=== PATIENT | female | born 2000 | race Two or more races ===

== ENCOUNTER 2025-02-08 23:23 | Emergency (ER) | payer MEDICAID, SELFPAY ==
[2025-02-08 23:24] VITALS: BMI 28.2
[2025-02-08 23:47] VITALS: BP 129/79; PULSE 97; RESP 18; TEMP 37.1; O2SAT 99
--- NOTE | 2025-02-08 23:52 | XR_ITS ---
Examination: CT abdomen and pelvis without contrast. Coronal 3-D reconstructions. Sagittal 2-D reconstructions. Date and time of exam: February 09, 2025, 0058 hours INDICATIONS: Onset right lower abdominal pain radiating to the back beginning 2 days ago CTDI: vol (mGy): 7.71 DLP: (mGycm): 444 Technique: Axial images of the abdomen have been obtained, 3 mm slice thickness Intravenous contrast material has not been administered. Low dose protocols were performed. One or more of the following dose reduction techniques were used; automated exposure control, adjustment of the mA and/or KV according to patient size, use of iterative reconstruction technique. Findings: Diffuse fatty infiltration throughout the liver No gallstones. No pancreatic mass No renal or ureteral calculi, no hydronephrosis Aorta normal size Normal appendix No bowel obstruction. Partially retroverted uterus with intrauterine device in the endometrium with the horizontal arms extending into the myometrium Mild free fluid in the pelvis 25 mm hypodense left adnexal mass Contracted urinary bladder IMPRESSION: Normal appendix Recommend transabdominal transvaginal pelvic sonography follow-up to exclude abnormal position of the intrauterine device and assess 25 mm hypodense left adnexal mass
[2025-02-09 00:23] LABS: Collection Type, Urine Clean Catch
[2025-02-09 00:28] LABS: Basophils # (Auto) 0.0 Thou/mm3 (0.0-0.2); Basophils % (Auto) 0 % (0-2.5); Eosinophils # (Auto) 0.0 Thou/mm3 (0.0-0.5); Eosinophils % (Auto) 1 % (0-10); Hematocrit 37.0 % (36.0-46.0); Hemoglobin 12.8 g/dL (12.0-16.0); Immature Granulocytes Auto 0.05 Thou/mm3 (0.00-0.00); Lymphocytes # (Auto) 1.3 Thou/mm3 (1.0-4.8); Lymphocytes % (Auto) 16 % (10-50); Mean Corpuscular HGB Conc 34.6 g/dl (31.0-37.0); Mean Corpuscular Hemoglobin 29.7 pg (25.0-35.0); Mean Corpuscular Volume 86 fL (80-100); Monocytes # (Auto) 0.4 Thou/mm3 (0.0-0.8); Monocytes % (Auto) 5 % (0-12); Neutrophils # (Auto) 6.6 Thou/mm3 (1.8-7.7); Neutrophils % (Auto) 78 % (37-80); Nucleated Red Blood Cell # 0.00 Thou/mm3 (0.00-0.00); Nucleated Red Blood Cell % 0 /100 WBC (0); Platelet Count 257 Thou/mm3 (140-440); RDW Standard Deviation 39.2 fL (36.4-46.3); Red Blood Count 4.31 Miln/mm3 (4.00-5.20); White Blood Count 8.4 Thou/mm3 (3.6-11.0)
[2025-02-09 00:33] LABS: HCG Qualitative,Urine Negative
[2025-02-09 00:44] LABS: Bacteria,Urine Rare; Bilirubin,Urine Negative (Negative); Blood,Urine Negative (Negative); Clarity,Urine Clear (Clear/Hazy); Color,Urine Lt-Yellow (Lt Yel-Yel); Glucose, Urine Negative (Negative); Ketones,Urine Negative (Negative); Leukocyte Esterase,Urine Positive (Negative); Nitrite,Urine Negative (Negative); PH,Urine 7.0 (5.0-7.0); Protein,Urine Negative (Neg - Trace); RBC,Urine 1 /hpf (0-3); Specific Gravity,Urine 1.008 (1.001-1.035); Squamous Epithelial Cell,Urine 3 /hpf (0-5); Urobilinogen,Urine Negative mg/dL (0.0-1.0); WBC,Urine 10 /hpf (0-5)
[2025-02-09 00:46] LABS: Sperm,Urine Present
[2025-02-09 00:47] LABS: Alanine Aminotransferase 76 U/L (10-49); Albumin, Serum 4.6 gm/dL (3.5-5.0); Albumin/Globulin Ratio 1.7 (1.2-2.2); Alkaline Phosphatase 86 U/L (46-116); Anion Gap 9 (7-16); Aspartate Amino Transferase 44 U/L (0-34); BUN/Creatinine Ratio 9 Ratio (12-20); Bilirubin,Total 0.5 mg/dL (0.3-1.2); Blood Urea Nitrogen 6 mg/dL (9-23); Calcium 9.1 mg/dL (8.3-10.6); Calcium (Corrected) 9.1 mg/dL (8.5-10.1); Carbon Dioxide 24.9 mMol/L (20.0-31.0); Chloride 105 mMol/L (98-107); Creatinine (Component) 0.7 mg/dL (0.6-1.3); Estimated Creatinine Clearance 93.4 mL/min (>60); Globulin 2.7 gm/dL (2.3-3.5); Glucose 111 mg/dL (74-106); Lipase 30 U/L (12-53); Osmolality,Calculated 276 (275-295); Potassium 3.5 mMol/L (3.4-5.1); Sodium 139 mMol/L (136-145); Total Protein 7.3 gm/dL (5.7-8.2); eGFR > 60 See Note
--- NOTE | 2025-02-09 01:45 | XR_ITS ---
Examination: Pelvic ultrasound, transabdominal, complete Technique: Transabdominal ultrasound of the pelvis performed using grayscale imaging Date and time of exam: February 09, 2025, 0211 hours INDICATIONS: Onset left lower abdominal pain beginning 2 days ago FINDINGS: Uterus 8.1 cm endometrial stripe 1.1 cm No uterine mass or intrauterine gestation Right ovary obscured by bowel gas Left ovary 4.8 cm arterial flow 24 x 20 mm simple cyst IMPRESSION: 24 x 20 x 20 mm left ovarian simple cyst Mild free fluid in the cul-de-sac
--- NOTE | 2025-02-09 01:48 | PRELIM_ITS ---
CT scan of the abdomen and pelvis without intravenous contrast (axial sections with sagittal and coronal reformats) February 09, 2025 0057 hours Clinical History: Abdominal pain. Comparison: No prior study is available for comparison. Findings: Mild hepatomegaly with mild fatty infiltration of the liver is noted. No evidence of renal/ureteric calculus or hydroureteronephrosis. The gallbladder, pancreas, spleen, kidneys and adrenals are unremarkable on this noncontrast study. No evidence of bowel obstruction. The appendix is within normal limits. No evidence of abdominal aortic aneurysm. There are multiple subcentimeter mesenteric lymph nodes. The urinary bladder is partially distended with apparent wall thickening. A malpositioned IUCD is seen with its horizontal arms piercing into the myometrium. There is a 2.5 x 2.4 cm hypodense lesion with irregular margin in the left ovary. Follicles are seen in the right ovary. A small amount of compl ex/hemorrhagic free fluid (HU 20) is seen in the pelvis. There is no free air. The osseous structures are unremarkable. The lung bases are clear. Please note that evaluation of soft tissue/vascular structures and bowel loops is limited due to absence of IV and oral contrast. Impression: 1. A 2.5 x 2.4 cm hypodense lesion with irregular margin in the left ovary, which may represent an involuting/ruptured follicular cyst with a small amount of complex/hemorrhagic free fluid in the pelvis. Suggest further evaluation with sonography, if clinically indicated. 2. Malpositioned IUCD with its horizontal arms piercing into the myometrium. Suggest appropriate replacement/repositioning. 3. Partially distended urinary bladder with mild wall thickening; possibility of cystitis cannot be excluded. 4. Mild hepatomegaly with mild fatty infiltration of the liver. 5. Other findings as described above. Suggest clinical correlation and follow up accordingly. Discussion Details: Results Discussed With : Dr. Berman at 01:40 AM 02/09/2025 Report Electronically Signed By: Tremayne Silver 02/09/2025 1:48:02 AM [EST]
--- NOTE | 2025-02-09 03:14 | PRELIM_ITS ---
Pelvic ultrasound (transabdominal). February 09, 2025 0211 hours Clinical history: Ovarian torsion, hemorrhagic cyst Technique: Real-time, grayscale, transabdominal pelvic ultrasound was performed. Comparison: Correlated with the prior CT study dated February 09, 2025 Findings: The uterus is anteverted and measures 8.1 x 3.7 x 5.1 cm. The endometrium measures 1.1 cm. An intrauterine contraceptive device seen in the prior CT is not demonstrated on the current transabdominal images. There is a 0.9 x 0.7 x 0.8 cm Nabothian cyst at the cervix. The right ovary is not visualized, likely obscured by bowel gas artifact. The left ovary measures 4.8 x 2.6 x 2.5 cm and demonstrates a thin walled anechoic cystic lesion measuring 2.4 x 2 x 2 cm, which may represent a simple ovarian cyst, also noted in the prior study. The left ovary demonstrate color flow and spectral waveforms on Doppler evaluation. There is a small amount of free fluid in the posterior cul-de-sac. Impression: 1. A 2.4 cm simple cyst in the left ovary. 2. No evidence of left ovarian torsion. 3. Nonvisualized right ovary. 4. Small amount of free fluid in the cul-de-sac Suggest clinical correlation and follow up accordingly. Report Electronically Signed By: Tremayne Silver 02/09/2025 3:12:50 AM [EST]
[2025-02-09 04:12] VITALS: BP 119/79; PULSE 68; RESP 16; TEMP 36.9; O2SAT 100
--- NOTE | 2025-02-09 04:14 | PD.EDABDPN ---
ED Abdominal Pain RME/HPI General Chief Complaint: Abdominal Pain Stated complaint: RIGHT ABD PAIN THAT RADIATES TO BACK Time seen by provider: 02/08/25 23:26 Arrival date/time: 02/08/25 23:23 This is a case of 25-year-old female with no medical history came into the emergency room due to right-sided abdominal pain radiating to the flank with nausea vomiting for 2 days persistence of the symptoms this patient decided to start consult her in the emergency room denies any vaginal bleeding denies any vaginal discharge Limitations: no limitations Related Data Previous Rx's ?Medication ?Instructions ?Recorded cephalexin 500 mg capsule 500 mg PO Q8H #30 caps 02/09/25 ibuprofen 800 mg tablet 800 mg PO Q8H PRN pain #20 tabs 02/09/25 ondansetron 4 mg disintegrating 4 mg PO Q8H PRN nausea and 02/09/25 tablet vomiting #20 tabs Allergies Allergy/AdvReac Type Severity Reaction Status Date / Time No Known Allergies Allergy Verified 02/08/25 23:23 Review of Systems Review of Systems Systems Reviewed: All systems reviewed, normal except as documented Constitutional Constitutional: Reports system reviewed and no additional complaints, except as documented and Reports as per HPI ENT Ears, Nose, Mouth, and Throat: Reports system reviewed and no additional complaints, except as documented, Reports as per HPI, Denies dysphagia and Denies odynophagia Cardiovascular Cardiovascular: Reports system reviewed and no additional complaints, except as documented and Reports as per HPI Respiratory Respiratory: Reports system reviewed and no additional complaints, except as documented and Reports as per HPI Gastrointestinal Gastrointestinal: Reports system reviewed and no additional complaints, except as documented, Reports as per HPI, Reports abdominal pain, Denies belching, Denies bloating, Denies change in bowel habits, Denies change in stool character, Denies coffee ground emesis, Denies constipation, Denies cramping, Denies diarrhea, Denies dyspepsia, Denies dysphagia, Denies early satiety, Denies excessive flatus, Denies fecal incontinence, Denies heartburn, Denies hematemesis, Denies hematochezia, Denies loose stools, Denies melena, Reports nausea, Denies odynophagia, Denies tenesmus and Reports vomiting Genitourinary Genitourinary: Reports system reviewed and no additional complaints, except as documented and Reports as per HPI Musculoskeletal Musculoskeletal: Reports system reviewed and no additional complaints, except as documented and Reports as per HPI Neurologic Neurologic: Reports system reviewed and no additional complaints, except as documented and Reports as per HPI Past Medical History Social History SMOKING STATUS: Never smoker ED Exam General Limitations: Present no limitations General appearance: Present alert, in no apparent distress and other (Patient is awake alert oriented not in distress nontoxic looking well-hydrated well-nourished) Head Head exam: Present atraumatic, normocephalic and normal inspection Eye Eye exam: Present normal appearance, PERRL and EOMI ENT ENT exam: Present normal exam, normal oropharynx and mucous membranes moist Neck Neck exam: Present normal inspection, full ROM and trachea midline; Absent tenderness, meningismus, lymphadenopathy or thyromegaly Chest Chest inspection: Present normal inspection and symmetric chest wall rise; Absent tenderness Respiratory Respiratory exam: Present normal lung sounds bilaterally; Absent respiratory distress, wheezes, stridor, accessory muscle use or prolonged expiratory phase Cardiovascular Cardiovascular exam: Present regular rate and normal rhythm; Absent bradycardia, tachycardia, irregular rhythm, normal heart sounds or diastolic murmur Abdominal Exam Abdominal exam: Present soft, tenderness (Tenderness on the right side of the abdomen no CVA tenderness no guarding no rebound no rigidity negative psoas negative straight or negative Rovsing's no McBurney's tender Clancy sign negative CVA tenderness) and normal bowel sounds; Absent distention, guarding, rebound, rigidity, diminished bowel sounds, hyperactive bowel sounds, hypoactive bowel sounds, organomegaly, psoas sign, obturator sign, Clancy's sign, Rovsing's sign, tenderness at McBurney's Point or hernia Extremities Exam Extremities exam: Present normal inspection and full ROM Back Exam Back exam: Present normal inspection and full ROM Neurological Exam Neurological exam: Present alert, oriented X3, CN II-XII intact, normal gait and reflexes normal; Absent motor sensory deficit Psychiatric Psychiatric exam: Present normal affect and normal mood Skin Skin exam: Present warm, dry, intact and normal color Course Quality Measures none Orders Category Date Time Status CT abdomen pelvis wo con Stat Exams 02/08/25 23:52 Taken US pelvic complete Stat Exams 02/09/25 01:45 Taken CBC Stat Lab 02/08/25 23:52 Completed Comprehensive Metabolic Panel Stat Lab 02/08/25 23:52 Completed HCG Qualitative,Urine Stat Lab 02/09/25 00:14 Completed Lipase Stat Lab 02/08/25 23:52 Completed Urinalysis Stat Lab 02/09/25 00:14 Completed Vital Signs Vital signs: Vital Signs Temperature 98.7 F 02/08/25 23:47 Pulse Rate 97 02/08/25 23:47 Respiratory Rate 18 02/08/25 23:47 Blood Pressure 129/79 02/08/25 23:47 Pulse Oximetry (%) 99 02/08/25 23:47 Oxygen Delivery Method Room Air 02/08/25 23:47 Oxygen saturation is 99% in room air normal Abdominal Pain MDM MDM Narrative MDM Narrative:: This is a case of 25-year-old female with no medical history came into the emergency room due to right-sided abdominal pain radiating to the flank with nausea vomiting for 2 days persistence of the symptoms this patient decided to start consult her in the emergency room denies any vaginal bleeding denies any vaginal discharge physical examination patient is awake alert oriented not in distress nontoxic looking well-hydrated well-nourished mild tenderness on the right upper and right lower quadrant but no guarding no rebound no rigidity negative psoas negative straight and negative Rovsing's negative McBurney's tender Clancy sign negative CVA tenderness the rest of the physical examination and neurological exam is normal and unremarkable blood test showed no leukocytosis no anemia kidney and liver function is normal no electrolyte imbalance lipase is normal urinalysis showed WBC and urine suggestive of urinary tract infection CT scan showed fatty liver hepatomegaly IUD malfunction and ovarian cyst which she was confirmed by the ultrasound patient was advised to follow-up with the OB office machine servicer apprentice for further evaluation and treatment of ovarian cyst and for reposition of IUD and to be referred to lifter/driver for fatty liver and hepatomegaly worsening symptoms recurrence persistent or any emergent concerns she will return in the emergency room immediately or call 911 cephalexin to be was given for urinary tract infection Patient was discharged with comfortable condition walking with stable gait. Patient verbalized no further complains explained diagnosis and answered patient question. Patient is comfortable with the proposed management plan including the need to follow up with his/her primary care physician and any specialist if applicable Discussed patient for any urgent condition or worsening sx, He/She needed to go to emergency room immediately or call 911. Patient acknowledge the responsibility to follow up as instructed and to monitor her/his symptoms. For any persistence of the symptoms for more than 3-5 days return precaution advised. Discussed the result of the test and was given printed discharge instruction Patient data External records reviewed:: [facility] previous records Clinical information provided by:: patient Social determinants that could affect healthcare access:: none Patient has the following chronic illnesses:: None How is presenting disease/condition affected by chronic disease/condition?: no chronic disease Evaluation data The following diagnostics were reviewed and interpreted by me:: lab results and radiology exam(s) Lab and/or radiology exams considered but not ordered:: Reviewed Interpretation Summary: Reviewed Medications / Prescriptions Medications or Prescriptions considered but not ordered:: Given Medication administrations:: Given Consultations Consultation(s) initiated? (list below): No Diagnosis Differential diagnosis abdominal pain: abdominal pain, acute appendicitis, calculus of kidney, constipation, diverticulitis, endometriosis, gastroenteritis, pancreatitis and small bowel obstruction Most likely diagnosis given after review of the tests above:: Cystitis urinary tract infection ovarian cyst Admission Indicated Admission indicated?: not indicated Explain why admission is indicated or not indicated:: Not indicated Admission Request Was there a request for admission?: No Disposition Plan Disposition Plan: Discharge Discharge Attestation Discharge Attestation: The patient and all family members were given an opportunity to ask questions and understood the discharge instructions. Discharge instructions specifically effects, indications for sooner follow up or return to the emergency department, and the expected course of current diagnosis. Patient condition: Stable Discharge Plan Plan Patient Disposition: HOME (Self Care) Patient condition on transfer: Stable Prescriptions/Referrals Prescriptions/Med Rec: New cephalexin 500 mg capsule 500 mg PO Q8H Qty: 30 0RF ibuprofen 800 mg tablet 800 mg PO Q8H PRN (Reason: pain) Qty: 20 0RF ondansetron 4 mg tablet,disintegrating 4 mg PO Q8H PRN (Reason: nausea and vomiting) Qty: 20 0RF Referrals: No Primary/Family,Physician [Primary Care Provider] - In 1 week Problem List Clinical Impression: Abdominal pain, Ovarian cyst, Urinary tract infection, Malpositioned intrauterine device, Cystitis, Fatty liver, Hepatomegaly Patient/Caregiver Discharge Instructions Education Materials: Tests for Liver Disease, Abdominal Pain, Nonalcoholic Fatty Liver ..., Urinary Tract Infections in Women, ED Ovarian Cyst, ED CYSTITIS Female Adult Additional Instructions: Follow-up with your primary care physician in 3 days for reevaluation and to be referred to OB office machine servicer apprentice for further evaluation and treatment of ovarian cyst recurrence persistent worsening symptoms or any emergent concern call 911 or go to the nearest emergency room take your medication as directed finish course of antibiotic keep hydrated it is very important to see OB office machine servicer apprentice in possible removal or reinsertion of your IUD you also need to be referred to lifter/driver for further evaluation and treatment of fatty liver and hepatomegaly Print Language: Nicaraguan Stand Alone Forms: Natali Award Info., Patient Portal Info Letter PA/VISUAL EDUCATION DIRECTOR Supervising Physician PA/VISUAL EDUCATION DIRECTOR Supervising Physician: Dr. Maritza Jackman
[2025-02-09] MEDS: ONDANSETRON ODT 4 MG TABRAP PO (04:31)
[2025-02-09] MEDS: HYDROcodone/APAP 5/325 TABLET 1 TAB PO (04:31)
== END 2025-02-09 04:34 | disposition home or self-care (01) ==
PROVIDERS: Nurse Practitioner Family; Emergency Provider Emergency Medicine
DX: N39.0 Urinary tract infection, site not specified (principal); T83.32XA Displacement of intrauterine contraceptive device, initial encounter; Y76.2 Prosthetic and other implants, materials and accessory obstetric and gynecological devices associated with adverse incidents; N83.209 Unspecified ovarian cyst, unspecified side
CPT/HCPCS: 36415; 74176; 76856; 80053; 81001; 81025; 83690; 85025; 99283; Q0162; A9270

== ENCOUNTER 2025-03-09 13:33 | Emergency (ER) | payer MEDICAID, SELFPAY ==
[2025-03-09 14:56] VITALS: BP 123/83; PULSE 59; RESP 20; TEMP 36.7; O2SAT 98
--- NOTE | 2025-03-09 15:04 | XR_ITS ---
Examination: Transvaginal ultrasound of the pelvis, complete Technique: Transvaginal sonographic images pelvis performed using mix scale imaging Exam date and time: March 09, 2025, 1656 hours INDICATIONS: Lower abdominal pain pelvic pain beginning 1 month ago FINDINGS: Uterus 7.8 cm no uterine mass or intrauterine gestation Technologist describes intrauterine device which is not well visualized Right ovary 2.8 cm x 4.0 cm arterial flow small follicles Left ovary 4.0 cm x 3.2 cm arterial flow follicles, the largest 12 mm Mild fluid in the cul-de-sac IMPRESSION: No uterine mass or intrauterine gestation.
--- NOTE | 2025-03-09 15:07 | EDNOTE_ITS ---
ED General RME/HPI General Chief complaint: Abdominal Pain Stated complaint: LOWER ABD PAIN, NAUSEA, DIZZINESS Time Seen by Provider: 03/09/25 14:49 Arrival date/time: 03/09/25 13:33 CC: Low left abdominal pain HPI patient was seen here 2 weeks ago with same complaint was determined to have an ovarian cyst patient states the pain has gotten particular bad in the last 3 days and the ibuprofen is not helping . Patient denies fever chills chest pain shortness of breath difficulty breathing painful urination or bloody urination no other complaints. Related Data Previous Rx's ?Medication ?Instructions ?Recorded cephalexin 500 mg capsule 500 mg PO Q8H #30 caps 02/09 ibuprofen 800 mg tablet 800 mg PO Q8H PRN pain #20 t abs 02/09/25 ondansetron 4 mg disintegrating 4 mg PO Q8H PRN nausea and 02/09/25 tablet vomiting #20 tabs meloxicam 7.5 mg tablet 7.5 mg PO QDAY #10 tabs 11/0 01/23 Allergies Allergy/AdvReac Type Severity Reaction Status Date / Time No Known Allergies Allergy Verified 02/08/25 23:23 Review of Systems Review of Systems Narrative Review of Systems: GEN: No fever, no chills, no weight loss EYES: No discharge, no visual changes, no pain HEENT: No ear pain, no congestion, no sore throat PULM: No shortness of breath, no cough, no congestion CV: No chest pain, no dyspnea on exertion, no palpitations GI: No nausea, no vomiting, no diarrhea, no pain, no constipation : No frequency, no urgency, no dysuria MUSC/SKEL: No joint pain, no back pain SKIN: No rash PSYCH: No hallucinations, no depression HEME/LYMPH: No easy bleeding or bruising tendencies NEURO: No weakness, no headache Past Medical History Social History SMOKING STATUS: Never smoker ED Exam Narrative Physical exam: [General: In mild discomfort but not in any acute distress Head normocephalic HEENT: Within acceptable limits Neck is supple nontender Chest equal chest rise nontender to palpation Respiratory: Clear to auscultation no wheezes crackles or rubs CV: Rate rhythm is regular no murmurs rubs or clicks Abdomen no pain in all 4 quadrants, low center left pain just adjacent to the pubis mons, no reflexive guarding or rebound tenderness. Back: No CVA tenderness no spinous process tenderness from cervical spine thoracic and lumbar spine Skin: Intact no petechiae rash induration ulceration or crepitus Extremities: Moving all extremity against resistance cap refill less than 2 seconds neurosensory intact Neuro: Awake alert oriented x3 Glascow coma 15 no focal deficits] Course Quality Measures none Orders Category Date Time Status US transvaginal Stat Exams 03/09/25 15:04 Completed Urinalysis Stat Lab 03/09/25 16:10 Completed Ketorolac Inj [Toradol Inj] Med 03/09/25 15:03 Discontinued 30 mg IM X1 ONE Vital Signs Vital signs: Vital Signs Temperature 98.1 F 03/09/25 14:56 Pulse Rate 59 L 03/09/25 14:56 Respiratory Rate 20 03/09/25 14:56 Blood Pressure 123/83 03/09/25 14:56 Pulse Oximetry (%) 98 03/09/25 14:56 Oxygen Delivery Method Room Air 03/09/25 14:56 Discharge Plan Plan Patient Disposition: HOME (Self Care) Patient condition on transfer: Stable Prescriptions/Referrals Prescriptions/Med Rec: New meloxicam 7.5 mg tablet 7.5 mg PO QDAY Qty: 10 0RF No Action cephalexin 500 mg capsule 500 mg PO Q8H Qty: 30 0RF ibuprofen 800 mg tablet 800 mg PO Q8H PRN (Reason: pain) Qty: 20 0RF ondansetron 4 mg tablet,disintegrating 4 mg PO Q8H PRN (Reason: nausea and vomiting) Qty: 20 0RF Referrals: Mary Grace Eastman PA-C [Primary Care Provider] - In 1 week Problem List Clinical Impression: Abdominal pain Patient/Caregiver Discharge Instructions Education Materials: Abdominal Pain Additional Instructions: Take the medication as prescribed follow-up with your primary care doctor. Print Language: Andorran Stand Alone Forms: Natali Award Info., Patient Portal Info Letter, Work/School Release ELDA/UNRULY Supervising Physician ELDA/UNRULY Supervising Physician: Jim Bethea ENP [facility] Clinical Information Provided by: patient Medical Records reviewed [facility] Meds/Rx considered, not ordered None Labs/Rad/Tests considered, not ordered None Chronic Illness/Social Conditions Explain: Ovarian cyst EKG EKG not done Labs Labs: interpreted by me Lab(s) Interpretation(s): Urine is negative for UTI Imaging Imaging interpretation: interpreted by me Imaging Interpretation(s): Ultrasound is negative for any acute finding. Medication Administration(s) none Medication Administration History Discontinued Medications Ketorolac Tromethamine (Ketorolac Inj 30 Mg/Ml Vial) 30 mg IM X1 ONE Stop: 03/09/25 15:04 Last Admin: 03/09/25 15:26 Dose: 30 mg Documented By: ED
[2025-03-09] MEDS: KETOROLAC INJ 30 MG/ML VIAL IM (15:26)
[2025-03-09 16:32] LABS: Collection Type, Urine Clean Catch
[2025-03-09 17:09] LABS: Bilirubin,Urine Negative (Negative); Blood,Urine Negative (Negative); Clarity,Urine Turbid (Clear/Hazy); Color,Urine Lt-Yellow (Lt Yel-Yel); Glucose, Urine Negative (Negative); Ketones,Urine Negative (Negative); Leukocyte Esterase,Urine Positive (Negative); Nitrite,Urine Negative (Negative); PH,Urine 6.5 (5.0-7.0); Protein,Urine Negative (Neg - Trace); RBC,Urine 1 /hpf (0-3); Specific Gravity,Urine 1.017 (1.001-1.035); Squamous Epithelial Cell,Urine 22 /hpf (0-5); Urobilinogen,Urine 2.0 mg/dL (0.0-1.0); WBC,Urine 7 /hpf (0-5)
== END 2025-03-09 18:33 | disposition home or self-care (01) ==
PROVIDERS: Registered Nurse General Practice; Emergency Provider Emergency Medicine; PCP Physician Assistant
DX: R10.9 Unspecified abdominal pain (principal)
CPT/HCPCS: 76830; 81001; 96372; 99283; J1885